=== PATIENT | female | born 1985 | race Caucasian/White ===

== ENCOUNTER 2024-11-05 13:06 | Outpatient (AMB) | payer OTHER, SELFPAY ==
--- NOTE | 2024-11-05 13:11 | MHC.PC.OV ---
Vital Signs 11/05/24 13:12 Height 5 ft 3.5 in Weight 167 lb 4 oz BMI 29.2 BP 120/72 Blood Pressure Location Lt brachial Position Sitting Pulse 104 H Pulse Source Pulse Oximeter Temp 96.9 F Temp Source Skin Pulse Oximetry (%) 99 Oxygen Delivery Method Room Air Intake Visit Reasons: establish care Intake Note: Patient is a new patient here to establish care for Migraine, Sinus issues. Transferring care from [facility] ([place]). Medical records have been requested and have not received. Graphic Arts Instructor Required: No Display Associate: Not Required per policy Accompanied by: Self / Same As Patient Allergies No Known Allergies Allergy (Verified 11/05/24 13:35) Medication List - Last Reconciled 11/05/24 by Denisse Thorne PA-C amitriptyline 100 mg PO BEDTIME fremanezumab-vfrm (Ajovy) 225 mg subcut Q4W sumatriptan succinate mg PO Tobacco use date assessed: 11/05/24 Dental Screening Dental Screen Date: 11/05/24 Did you have a dental visit in the last 12 months?: Yes Did you have a dental problem in the last 6 months where you did not have access to dental care?: No Was dental information given to patient?: Patient has dentist HPI establish care HPI Details 38-year-old female coming to the office for the 1st time. Patient previously being seen by [place]. She had a specialist at [facility] for Neurology for treatment of migraines. Her last PCP was addressing some sinus issues that she has been having for the last 15 years. She was referred to an jewel bearing facer however never made an appointment due to insurance issues. She uses decongestants and nasal sprays occasionally without good relief. She also mentions being seen in the urgent care last month and being treated for impetigo and acute sinusitis with topical mupirocin and oral antibiotic. Sinus symptoms have improved however rash under the nose has been painful and persistent. [facility] Medical History Pseudotumor cerebri History of lumbar puncture Surgical History No pertinent past surgical history Family History Father Substance use disorder Social History Housing: House Alcohol intake: current Alcohol intake frequency: holidays/special occasions only Patient Tobacco Use Status: Never used Tobacco e-Cigarette/Vaping Use: Never Used Second Hand Smoke Exposure: No service: No Current occupational status: unemployed Cognitive needs: No Hearing needs: No Vision needs: Yes (Contacts) Female Reproductive History Menstrual control method: none Total pregnancies: 0 History of abnormal pap smear: No Questionnaire PHQ-9 Over the last 2 weeks, how often have you been bothered by any of the following problems? 1. Little interest or pleasure in doing things: several days 2. Feeling down, depressed, or hopeless: not at all 3. Trouble falling or staying asleep, or sleeping too much: several days 4. Feeling tired or having little energy: nearly every day 5. Poor appetite or overeating: not at all 6. Feeling bad about yourself - or that you are a failure or have let yourself or your family down: several days 7. Trouble concentrating on things, such as reading the newspaper or watching television: not at all 8. Moving or speaking so slowly that other people could have noticed. Or the opposite - being so fidgety or restless that you have been moving around a lot more than usual: not at all 9. Thoughts that you would be better off or of hurting yourself in some way: not at all Total score: 6 Depression Screening Interpretation: Positive Depression Screening Follow-up: Existing condition and Declines treatment Depression Screening Done: Yes Source: Developed by Drs. Catracho Singleton, Aurelia Uriostegui, Dominick Hernandez and colleagues, with an educational gely from [employer]. Thrive Questionnaire Date Thrive assessed: 11/03/24 I am a: Patient What is your living situation today?: I have a steady place to live Within the past 12 months, did the food you bought not last and you didn't have the money to get more?: Never true Within the past 12 months, did you worry whether your food would run out before you got money to buy more?: Never true Do you have trouble paying for medicines?: I choose not to answer this question Do you have trouble getting transportation to medical appointments?: No Do you have trouble paying your heating and electricity bill?: No Do you have trouble taking care of your child, family member or friend?: No Do you have trouble with day-to-day activities such as bathing, preparing meals, shopping, managing finances, etc.?: No Are you currently unemployed and looking for a job?: Yes Are you interested in more education?: I choose not to answer this question Please select the resources that you would like help with: None Currently or been in a relationship where the following occur: No concerns reported THRIVE Score: 0 AUDIT C Alcohol Use Questionnaire (AUDIT-C) 1. How often do you have a drink containing alcohol?: 2-4 times a month 2. How many drinks containing alcohol do you have on a typical day when you are drinking?: 1 or 2 3. How often do you have six or more drinks on one occasion?: Less than monthly Total Score: 3 ALEXX-7 AMB Questionnaire ALEXX-7 Date ALEXX - 7 assessed: 11/05/24 Feeling nervous, anxious, or on edge: 1 = Several days Not being able to stop or control worryin = Not at all Worrying too much about different things: 0 = Not at all Trouble relaxin = Several days Being so restless that it is hard to sit still: 0 = Not at all Becoming easily annoyed or irritable: 0 = Not at all Feeling afraid as if something awful might happen: 0 = Not at all Total ALEXX-7 score (0-4 normal; 5-9 mild; 10-14 moderate; 15-21 severe): 2 Source: Developed by Drs. Catracho Singleton, Aurelia Uriostegui, Dominick Hernandez and colleagues, with an educational gely from [employer]. ALEXX-7 Assessment Billing ALEXX-7 Assessment Tool: ALEXX-7 Assessment 02885 Review of Systems Const Denies body aches, Denies chills, Denies fever(s) and Denies poor appetite Eyes Reports no additional complaints ENT Reports nasal congestion, Reports nasal discharge and Reports sinus pain Card Denies chest pain and Denies dyspnea Resp Denies cough and Denies dyspnea GI Denies abdominal pain, Denies constipation, Denies diarrhea, Denies nausea and Denies vomiting Reports no additional complaints Musc Reports no additional complaints and Denies abnormal gait Skin/Breast Reports system reviewed and no additional complaints, except as documented Neuro Denies abnormal gait Psych Reports no additional complaints Physical exam (Primary Care) Vital Signs: Last Vital Signs Temp 96.9 F 11/05/24 13:12 Pulse 104 H 11/05/24 13:12 BP 120/72 11/05/24 13:12 Pulse Ox 99 11/05/24 13:12 Oxygen Delivery Method Room Air 11/05/24 13:12 BMI result Body Mass Index 29.2 Tobacco/Smoking Status: Tobacco use Status Tobacco use date assessed 11/05/24 11/05/24 13:20 Patient Tobacco Use Status Never used Tobacco 11/05/24 13:21 e-Cigarette/Vaping Use Never Used 11/05/24 13:21 PHQ-9: PHQ-9 Score PHQ-9: Total score 6 11/05/24 13:20 Depression Screening Interpretation: Positive Depression Screening Follow-up: Existing condition and Declines treatment Thrive Assessment: Date of Thrive Assessment Date Thrive assessed 11/03/24 11/05/24 13:20 Currently or been in a relationship where the following occur: No concerns reported Const General: cooperative, healthy appearing, comfortable and no acute distress Orientation/consciousness: patient oriented x3 HENMT Other: Bilateral nares inflamed with dry flaking skin and honey-colored crust. Crusting also extends onto upper lip on the left side with erythematous dry skin with honey-colored crust Head: Yes normocephalic Ears: hearing grossly normal bilaterally General nose exam: Normal external nose present Eyes General: appearance normal, both eyes and all related structures Conjunctivae: conjunctivae normal Neck Neck: Yes full ROM and Yes no lymphadenopathy Resp Effort & Inspection: normal respiratory effort Auscultation: clear to auscultation bilaterally, no crackles, no rales, no rhonchi and no wheezes Cardio Rate: regular rate Rhythm: regular rhythm Skin General skin exam: no rashes or lesions noted Neuro General: patient oriented x3 Gait exam (Neuro): Normal gait present Extrem General: Yes normal to inspection, Yes full ROM and No edema Psych Affect: normal affect Attitude: cooperative Insight: Good insight present (Psych) Judgement: Good judgement present (Psych) Coding Level of Care Code New Pt Level 4 (23444) Diagnoses Migraines G43.909 Allergic rhinitis J30.9 Recurrent sinusitis J32.9 Impetigo L01.00 Depression F32.A Additional Codes ALEXX-7 Assessment Billing - ALEXX-7 Assessment Tool: ALEXX-7 Assessment 44844 ([id number]) Assessment & Plan Assessment & Plan (1) Migraines: Code(s): G43.909 - Migraine, unspecified, not intractable, without status migrainosus Category: Medical Plan: Patient having history of migraines being seen by [facility] Neurology however has lost her neurologist because they left the practice. On sumatriptan as needed, Ajovy monthly and amitriptyline daily. Referral placed to neurologist today. (2) Allergic rhinitis: Code(s): J30.9 - Allergic rhinitis, unspecified Category: Medical Plan: Patient having allergic rhinitis referral placed to proofer prepress and ear has not throat specialists. Also recommended using azelastine nasal spray as well as saline nasal spray for symptom management. Also recommended starting Nicole daily for allergy symptoms. (3) Recurrent sinusitis: Code(s): J32.9 - Chronic sinusitis, unspecified Category: Medical Plan: Patient having history of recurrent sinusitis was initially going to be evaluated by ear nose and throat however did not have appointment. Referral placed to ENT today. Referral also placed to proofer prepress for further evaluation. (4) Impetigo: Code(s): L01.00 - Impetigo, unspecified Category: Medical Plan: Patient having symptoms concerning of a MRSA infection under the nares and on the upper lip. Was being treated with mupirocin ointment initially had improvement and has been using mupirocin for the last month without clearing. We will trial doxycycline b.i.d. for 7 days for treatment of impetigo. Advised patient to reach out if symptoms do not improve. (5) Depression: Code(s): F32.A - Depression, unspecified Category: Medical Plan: Patient having history of depression was previously being seen by counselor for 10 years and did find this beneficial. Declines any symptoms at this time and is declining counseling or medical management. Plan This note was constructed using voice recognition software. While every effort has been made to ensure accuracy and industrial health engineer, still areas may have been included sometimes these areas may affect the content or meeting of the given symptoms. Total time spent caring for the patient today was 30 minutes. This includes time spent before the visit reviewing the chart, time spent during the visit, and time spent after the visit and documentation. Orders: Orders Vitamin B12 and Folate Today Z00.00 - Encounter for general adult medical examination without abnormal findings Complete Blood Count Auto Diff Today Z00.00 - Encounter for general adult medical examination without abnormal findings Comprehensive Met. Panel Today Z00.00 - Encounter for general adult medical examination without abnormal findings TSH reflex Free T4 Today Z00.00 - Encounter for general adult medical examination without abnormal findings Vitamin D 25-OH Total Today Z00.00 - Encounter for general adult medical examination without abnormal findings Lipid Panel Today E78.00 - Pure hypercholesterolemia, unspecified Referrals Neurology Referral G43.909 - Migraine, unspecified, not intractable, without status migrainosus ROAD PATCHER Referral Z12.4 - Encounter for screening for malignant neoplasm of cervix Allergy & Immunology Referral J30.9 - Allergic rhinitis, unspecified Ear/Nose/Throat Referral J30.9 - Allergic rhinitis, unspecified, J32.9 - Chronic sinusitis, unspecified Medications: New azelastine administer into each nostril 1 spray intranasal BID 30 mL 0RF doxycycline hyclate 100 mg PO BID 14 tabs 0RF fexofenadine 180 mg PO DAILY 90 tabs 2RF
[2024-11-05 13:12] VITALS: BP 120/72; PULSE 104; TEMP 36.1; O2SAT 99; BMI 29.2
--- OUTSIDE RECORDS SUMMARY | 2024-11-05 15:40 | XMS_ITS | Continuity of Care Document ---
Author Organization [facility] Pruett [facility] Address [address] [place] [id number] Care Team Providers Care [employer] Learning Support Teacher Name Role Phone IRINA FORTUNE Primary Care Provider [phone] Assessment No assessment recorded. Plan of Treatment Reminders Order Date Submit Date Provider Last Modified By Organization Details Last Modified Time Details Appointments None recorded. Lab None recorded. Referral None recorded. Procedures None recorded. Surgeries None recorded. Imaging None recorded. Medication Orders amoxicillin 875 mg-potassiu m clavulanate 125 mg tablet [address] [id number], [address] [place], [address], 14:44:54 mupirocin 2 % topical ointment [address] [id number], [address] [place], [address], 14:44:53 Patient TargetsNo targets recorded. Patient Instructions Encounter Date Encounter Id Patient Instructions Last Modified By Organization Details Last Modified Time 09/30/2024 [id number] Acute Sinusitis: Care Instructions [email or web address] Not available 09/30/2024 14:44:51 Reason for Referral None Reported. Problems Name Problem SNOMED Code Status Onset Date Resolution Date Notes Provider Name and Address Organization Details Recorded Time Migraine 70858435 Active 2023 ALEXANDRE Archibald [facility] 14:33:54 Attention deficit hyperactivity disorder 794311058 Active 2023 ALEXANDRE Archibald [facility] 12/10/202 4 14:34:04 Problem Notes None recorded. Medical Equipment None Reported. Allergies No known drug allergies Medications Name Sig Start Date Stop Date Status Note LastModified by Organization Details LastModified Time amoxicillin 500 mg capsule TAKE 4 CAPSULES BY MOUTH 1 HOUR BEFORE DENTAL PROCEDURE 09/30 completed Not Available Not Available Not Available ibuprofen 800 mg tablet TAKE 1 TABLET BY MOUTH EVERY 8 HOURS NEEDED FOR PAIN 09/30 completed Not Available Not Available Not Available sumatriptan 100 mg tablet PLEASE SEE ATTACHED FOR DETAILED DIRECTION S active Not Available Not Available No t Available hydrocodone 5 mg-acetamin ophen 325 mg tablet TAKE ONE TAB EVERY 4- 6 HOURS NEEDED PAIN,NOT TO COMBINE WITH OTHER STIMULANT S/DEPRESS ANTS MEDS 09/30 completed Not Available Not Available Not Available dextroamphe tamine-amph etamine 10 mg tablet 1 tablet by mouth twice a day active Not Available Not Available No t Available mupirocin 2 % topical ointment APPLY A SMALL AMOUNT TO THE AFFECTED AREA BY TOPICAL ROUTE 3 TIMES PER DAY 2023 active Not Available Not Available Not Avai lable methylpredn isolone 4 mg tablets in a dose pack TAKE 6 TABLETS ON DAY 1 DIRECTED ON PACKAGE AND DECREASE BY 1 TAB EACH DAY FOR A TOTAL OF 6 DAYS 09/30 completed Not Available Not Available Not Available topiramate 100 mg tablet TAKE 1 TABLET BY MOUTH TWICE A DAY 09/30 completed Not Available Not Available Not Available amitriptyli ne 100 mg tablet TAKE 1 TABLET BY MOUTH EVERYDAY AT BEDTIME active Not Available Not Available No t Available amoxicillin 875 mg-potassiu m clavulanate 125 mg tablet Take 1 tablet every 12 hours by oral route for 10 days. 2023 active Not Available Not Available Not Avai lable Ajovy 225 mg/1.5 mL subcutaneou s auto-inject or active Not Available Not Available Not Available Vitals Date Recorded Body height Body mass index (BMI) Body weight Body temperature Respiratory rate Heart rate Oxygen saturation Oxygen saturation in Arterial blood by Pulse oximetry Systolic blood pressure Diastolic blood pressure Provider Name and Address Organization Details Last Updated DateTime 4 162.56 cm 29.2 kg/m2 30532.1 4 g 98.1 [degF] 12 /min 102 /min 97 % 97 % 134 mm[Hg] 85 mm[Hg] Rafael SCHROEDER - [facility] 14:41:23 Social History Question Answer Notes LastModified by Organizat ion Details LastModified Time Tobacco Smoking Status Never Smoker ALEXANDRE Archibald [facility] 09/30/2024 14:35:51 What Is Your Level Of Alcohol Consumption? Occasional Information not available 09/30/2024 How Many Times Per Week Do You Consume Alcohol? Less Than 1 Time Per Week Information not available 09/30/2024 How Many Years Have You Consumed Alcohol? 15 Information not available 09/30/2024 Are You Currently Employed? No Information not available 09/30/2024 How Many Alcoholic Drinks Do You Consume Per Day On Average? 0 Information not available 09/30/2024 Which Illicit Or Recreational Drugs Have You Used? Edibles Information not available 09/30/2024 How Many Years Have You Used Illicit Or Recreational Drugs? 1 Information not available 09/30/2024 Have You Had A Flu Shot This Season? No Information not available 09/30/2024 If No, Would You Like A Flu Shot Today? No Information not available 09/30/2024 What Is Your Water Source? Well Information not available 09/30/2024 What Is Your Heat Source? Gas Information not available 09/30/2024 What Was The Date Of Your Most Recent Tobacco Screening? 09/30/2024 Information not available 09/30/2024 What Is Your Relationship Status? Domestic Partner Fiance Information not available 09/30/2024 Are You Passively Exposed To Smoke? No Information not available 09/30/2024 Do You Use Any Illicit Or Recreational Drugs? Yes Information not available 09/30/2024 Have You Recently Traveled Abroad? No Information not available 09/30/2024 Do You Or Have You Ever Used Any Other Forms Of Tobacco Or Nicotine? No Information not available 09/30/2024 Sex: Unknown Functional Status None recorded. Mental Status None recorded. Family History Relationship Description Onset Age of this Age Resolved Age Notes LastModified by Organization Details LastModified Time Sister Asthma Not available 14:34:29 Sister Neoplasm of brain Not available 2023 14:34:38 Mother Hypertensive disorder Not available 2023 14:34:47 Father Hepatic failure Not available 2023 14:34:56 Medical History No medical history recorded. Gynecological History Statement/Question Response Date of LMP 09/19/2024 Is there any chance of ? No LMP Definite Obstetrics History GPAL:G 0 P 0 0 0 0 Past Encounters Encounter ID Performer Location Encounter Start Date Encounter Closed Date Diagnosis/Indication Diagnosis SNOMED-CT Code Diagnosis ICD10 Code Diagnosis Note [id number] ALEXANDRE Mooney [address] [place] [address] 09/30/2024 14:27:09 09/30/2024 14:50:14 Acute sinusitis 91187367 J01.90 Based on your presentati on and exam, you are being diagnosed with Sinusitis. Rhinosinus itis is most often viral and will resolve on its own in 7-10 days. Symptoms that last longer than 2 weeks an antibiotic could be considered . Based on your presentati on, an antibiotic was written. The following are my recommenda tions to help your symptoms and to allow your condition to improve: 1. Drink plenty of fluids while you are ill- stay hydrated 2. Rest - don't overexert yourself - this includes sports and any gym routines. 3. I suggest taking an antihistam ine - like Claritin, Zyrtec, or Benedryl 4. If you take OTC cold medication I would recommend Laureen-Selze r Cold/Cough . 5. Mucinex with a lot of water is ok - if you are having trouble clearing your nasal passages of mucous. However, if you start to cough then discontinu e - this can increase coughing due to a watery post nasal drip. 6. Steroid Nasal [place] like Flonase or Nasonex is recommende d. Since an antibiotic was prescribed you need to complete the full course - this is important so you don't develop any antibiotic resistance to future infections . I advise taking a Probiotic like Florastor since you are on an antibiotic - this will help you re-coloniz e your body with the good bacteria. Typically, it will take 6 months for you to restore your normal body ruiz after an antibiotic . Don't hesitate to be seen again if you develop: 1. Fever > 100.5 2. Worsening Headache 3. Stiff Neck 4. Worsening Cough or Shortness of breath 5. Visual Changes. The antibiotic should start to work in 4-5 days. You may not notice immediate response. Thank you for using [facility] today, please feel free to contact our office if you have any questions or concerns. Health Concerns Section Related Observation LastModified by Organization Detai ls LastModified Time None Recorded Concern Status LastModified by Organization Details LastModified Time None Recorded Payers Encounter Date Sequence Insurance Name Policy Number Policy Lee Covered Member ID Lee Member ID Guarantor Name 09/30/2024 1 [facility] ([facility]) JENI Kristina Hsu [id number] Kristina Hsu Notes Date Note Type Note Provider Name and Address Organization Details Recorded Time 09/30/2024 text/html 38 y/o female with a month of sinus congestion, pain, headache, worsening. Using OTC meds with no relief, this feels like her normal sinus infection symptoms. she also has sores on both nostrils ALEXANDRE Mooney [address] [place], [address], [place] - [facility] 09/30/2024 14:46:12 OBGyn Episode No OBEpisode recorded.
== END 2024-11-05 14:03 | disposition home or self-care (01) ==
PROVIDERS: PCP Internal Medicine
DX: G43.909 Migraine, unspecified, not intractable, without status migrainosus (principal); J30.9 Allergic rhinitis, unspecified; J32.9 Chronic sinusitis, unspecified; L01.00 Impetigo, unspecified; F32.A Depression, unspecified

== ENCOUNTER → 2024-11-05 13:06 | Outpatient (BNVA) | payer OTHER, SELFPAY | PROVIDERS: PCP Internal Medicine | DX: Z00.00 Encounter for general adult medical examination without abnormal findings (principal); G43.909 Migraine, unspecified, not intractable, without status migrainosus; J30.9 Allergic rhinitis, unspecified; J32.9 Chronic sinusitis, unspecified; L01.00 Impetigo, unspecified; F32.A Depression, unspecified; E78.00 Pure hypercholesterolemia, unspecified | CPT/HCPCS: 96127; 99202 ==

== ENCOUNTER 2025-01-31 11:42 | Outpatient (REF) | payer OTHER, SELFPAY ==
--- OUTSIDE RECORDS SUMMARY | 2025-01-31 11:45 | XMS_ITS | Data Portability ---
Author Organization ALEXANDRE Pruett michel [address] Address [address] [place] [address] Care Team Providers Care Mc Kay Stitcher Name Role Phone IRINA FORTUNE Primary Care Provider Assessment No assessment recorded. Plan of Treatment Reminders Order Date Submit Date Provider Last Modified By Organization Details Last Modified Time Details Appointments None recorded. Lab None recorded. Referral None recorded. Procedures None recorded. Surgeries None recorded. Imaging None recorded. Medication Orders amoxicillin 875 mg-potassiu m clavulanate 125 mg tablet 2023 024 [facility]armacy #[id number], [address] [place], [address], 14:44:54 mupirocin 2 % topical ointment 2023 024 [facility]arm[facility] #[id number], [address] [place], [address], 14:44:53 Patient TargetsNo targets recorded. Patient Instructions Encounter Date Encounter Id Patient Instructions Last Modified By Organization Details Last Modified Time 09/30/2024 [id number] Acute Sinusitis: Care Instructions [email or web address] Not available 09/30/2024 14:44:51 Reason for Referral None Reported. Problems Name Problem SNOMED Code Status Onset Date Resolution Date Notes Provider Name and Address Organization Details Recorded Time Migraine 07116331 Active 2023 ALEXANDRE Archibald [facility] 14:33:54 Attention deficit hyperactivity disorder 075856076 Active 2023 ALEXANDRE Archibald [facility] 14:34:04 Problem Notes None recorded. Medical Equipment [...] (BMI) Body weight Body temperature Respiratory rate Pain severity - 0-10 verbal numeric rating [Score] - Reported Heart rate Oxygen saturation Oxygen saturation in Arterial blood by Pulse oximetry Systolic blood pressure Diastolic blood pressure Provider Name and Address Organization Details Last Updated DateTime 4 162.56 cm 29.2 kg/m2 79918.1 4 g 98.1 [degF] 12 /min 8 102 /min 97 % 97 % 134 mm[Hg] 85 mm[Hg] Rafael Martineznas PA - [facility] 14:41:23 Social History Question Answer Notes LastModified by Organizat ion Details LastModified Time Tobacco Smoking Status Never Smoker Rafael Martineznas ash PA - [facility] 09/30/2024 14:35:51 What Is Your [...] SNOMED-CT Code Diagnosis ICD10 Code Diagnosis Note [id number] ALEXANDRE Mooney [address] [place] [address] 09/30/2024 14:27:09 09/30/2024 14:50:14 Acute sinusitis 61621632 J01.90 Based on your presentati on and [...] watery post nasal drip. 6. Steroid Nasal [place] like Flonase or Nasonex is recommende d. [...] by Organization Details LastModified Time None Recorded Advance Directives Directive None Recorded Payers Encounter Date Sequence Insurance Name Policy Number Policy Lee Covered Member ID Lee Member ID Guarantor Name 09/30/2024 1 [facility] [employer] Kristina Hsu [id number] Kristina Hsu Notes Date Note Type Note Provider Name and Address Organization Details Recorded Time 09/30/2024 text/html 38 y/o female with a month of sinus congestion, pain, headache, worsening. Using OTC meds with no relief, this feels like her normal sinus infection symptoms. she also has sores on both nostrils ALEXANDRE Mooney [address] [place], [address], [place] - [facility] 09/30/2024 14:46:12 OBGyn Episode No OBEpisode recorded.
[2025-01-31 13:32] LABS: MANUAL DIFF FLAG NO
[2025-01-31 13:35] LABS: Basophils Absolute Auto 0.1 X10*3/uL (0.0-0.2); Basophils Percent Auto 1.8 % (0-2); Eosinophils Absolute Auto 0.5 X10*3/uL (0.0-0.4); Eosinophils Percent Auto 7.7 % (0-4); Hematocrit 32.5 % (37.0-47.0); Hemoglobin 9.4 g/dl (12.0-16.0); Imm Gran Abs Auto 0.01 X10*3/uL (0.00-0.03); Imm Gran Pct Auto 0.1 % (0.0-0.4); Lymphocytes Absolute Auto 1.7 X10*3/uL (1.2-4.9); Lymphocytes Percent Auto 25.4 % (20-40); Mean Corpuscular HGB Conc 28.9 g/dl (31.0-35.0); Mean Corpuscular Hemoglobin 21.5 pg (27.0-33.0); Mean Corpuscular Volume 74.4 fL (80.0-98.0); Mean Platelet Volume 9.7 fL (9.4-12.3); Monocytes Absolute Auto 0.5 X10*3/uL (0.1-1.2); Monocytes Percent Auto 6.9 % (2-11); Neutrophils Absolute Auto 3.9 x10*3/uL (2.0-8.3); Neutrophils Percent Auto 58.1 % (45-73); Platelet Count 320 X10*3/uL (160-400); Red Blood Count 4.37 X10*6/uL (4.20-5.50); Red Cell Distribution Width 17.5 % (11.0-16.0); White Blood Count 6.8 X10*3/uL (4.8-10.8)
[2025-01-31 13:53] LABS: Alanine Aminotransferase 10 U/L (0-31); Albumin Level 4.2 g/dL (3.5-5.0); Alkaline Phosphatase 64 U/L (39-117); Anion Gap 12 (12-20); Aspartate Amino Transferase 18 U/L (5-31); Bilirubin Total 0.5 mg/dL (0.0-1.0); Blood Urea Nitrogen 9 mg/dL (9-16); Calcium 9.1 mg/dL (8.4-10.2); Carbon Dioxide 28 mmol/L (22-29); Chloride 105 mmol/L (96-108); Cholesterol 220 mg/dL (<200); Estimated Glomerular Filt Rate > 60; Glucose Random 101 mg/dL (60-115); HDL Cholesterol 75 mg/dL (>40); LDL Cholesterol Calculated 120 mg/dL (<100); Potassium 3.8 mmol/L (3.3-5.1); Sodium 141 mmol/L (135-145); Total Protein 7.3 g/dL (6.5-8.0); Triglycerides 125 mg/dL (<150)
[2025-01-31 14:10] LABS: TSH reflex Free T4 0.65 uIU/mL (0.32-4.0); Vitamin D 25-OH Total 6.4 ng/mL (>30)
[2025-01-31 14:22] LABS: Folate 5.6 ng/mL (> or = 4.0); Vitamin B12 437 pg/mL (200-900)
== END 2025-01-31 11:43 | disposition home or self-care (01) ==
LOC: HO.HMGCLDS 11:42
DX: Z00.00 Encounter for general adult medical examination without abnormal findings (principal); E78.00 Pure hypercholesterolemia, unspecified
CPT/HCPCS: 36415; 80053; 80061; 82306; 82607; 82746; 84443; 85025

== ENCOUNTER 2025-02-03 14:48 | Outpatient (AMB) | payer OTHER, SELFPAY ==
--- NOTE | 2025-02-03 15:00 | A.OFFPC_ITS ---
Vital Signs 3 02/03/25 15:01 Height 5 ft 3.5 in Weight 177 lb BMI 30.9 BP 120/68 Blood Pressure Location Lt brachial Position Sitting Pulse 65 Pulse Source Pulse Oximeter Temp 97.5 F Temp Source Temporal Artery Scan Pulse Oximetry (%) 100 Oxygen Delivery Method Room Air Intake Visit Reasons: pe Intake Note: Patient is here today for a physical. Appraiser Personal Property Required: No Certified Nuclear Medicine Technologist: Not Required per policy Accompanied by: Self / Same As Patient Allergies No Known Allergies Allergy (Verified 02/03/25 15:12) Medication List - Last Reconciled 02/03/25 by Denisse Thorne PA-C amitriptyline 100 mg PO BEDTIME azelastine 1 spray intranasal BID cholecalciferol (vitamin D3) 25 mcg PO DAILY fexofenadine 180 mg PO DAILY fremanezumab-vfrm (Ajovy) 225 mg subcut Q4W sumatriptan succinate mg PO Tobacco use date assessed: 02/03/25 Dental Screening Dental Screen Date: 11/05/24 HPI pe 2 HPI0 Details 39-year-old female with past medical his tory of depression, migraines and impetigo last seen 10/2024 coming in for annual exam. Presenting for her annual wellness exam and evaluation of chronic migraine headaches which occur several times weekly. The patient reports persistent skin rash under the nose, exacerbated by environmental factors, noting some relief with a prior ointment, which she discontinued a month ago. Initially had improved with Doxycycline but is beginning to return. Lab studies have identified iron deficiency anemia, primarily due to menorrhagia, impacting her overall well-being. Although fatigue is not explicitly reported, the patient acknowledges heavy menstruation significantly complicates daily activities. An ophthalmic issue, a sty, reportedly subsided following warm compress treatments and the use of specific hygiene techniques. pap smear: seeing bakery chef later this week [facility] Medical History Pseudotumor cerebri History of lumbar puncture Surgical History No pertinent past surgical history Family History Father Substance use disorder Social History Housing: House Alcohol intake: current Alcohol intake frequency: holidays/special occasions only Patient Tobacco Use Status: Never used Tobacco e-Cigarette/Vaping Use: Never Used Second Hand Smoke Exposure: No service: No Current occupational status: unemployed Cognitive needs: No Hearing needs: No Vision needs: Yes (Contacts) Female Reproductive History Menstrual control method: none Questionnaire Thrive Questionnaire Date Thrive assessed: 11/03/24 I am a: Patient What is your living situation today?: I have a steady place to live Within the past 12 months, did the food you bought not last and you didn't have the money to get more?: Never true Within the past 12 months, did you worry whether your food would run out before you got money to buy more?: Never true Do you have trouble paying for medicines?: I choose not to answer this question Do you have trouble getting transportation to medical appointments?: No Do you have trouble paying your heating and electricity bill?: No Do you have trouble taking care of your child, family member or friend?: No Do you have trouble with day-to-day activities such as bathing, preparing meals, shopping, managing finances, etc.?: No Are you currently unemployed and looking for a job?: Yes Are you interested in more education?: I choose not to answer this question Please select the resources that you would like help with: None Currently or been in a relationship where the following occur: No concerns reported THRIVE Score: 0 ALEXX-7 AMB Questionnaire ALEXX-7 Date ALEXX - 7 assessed: 11/05/24 Source: Developed by Drs. Catracho Singleton, Aurelia Uriostegui, Dominick Hernandez and colleagues, with an educational gely from [employer]. Review of Systems Const Denies body aches, Denies fatigue, Denies fever(s), Denies frequent falls, Denies headache(s) and Denies weakness Eyes Reports no additional complaints and Denies change in vision ENT Denies dysphagia, Denies dizziness, Denies facial pain, Denies headache(s), Denies nasal congestion and Denies odynophagia Card Denies chest pain, Denies syncope, Denies irregular heart rhythm, Denies leg edema, Denies lightheadedness and Denies dyspnea Resp Denies cough and Denies dyspnea GI Denies abdominal pain, Denies constipation, Denies dysphagia, Denies dyspepsia, Denies diarrhea, Denies nausea, Denies odynophagia and Denies vomiting Denies urinary frequency, Denies dysuria, Denies urinary hesitancy and Denies urinary urgency Musc Denies back pain and Denies myalgias Skin/Breast Reports system reviewed and no additional complaints, except as documented Neuro Denies dizziness, Denies syncope, Denies frequent falls, Denies headache(s) and Denies weakness Psych Reports no additional complaints Endo Denies fatigue Physical exam (Primary Care) Vital Signs: Last Vital Signs Temp 97.5 F 02/03/25 15:01 Pulse 65 02/03/25 15:01 BP 120/68 02/03/25 15:01 Pulse Ox 100 02/03/25 15:01 Oxygen Delivery Method Room Air 02/03/25 15:01 BMI result Body Mass Index 30.9 Tobacco/Smoking Status: Tobacco use Status Tobacco use date assessed 02/03/25 02/03/25 15:06 Patient Tobacco Use Status Never used Tobacco 02/03/25 15:06 e-Cigarette/Vaping Use Never Used 02/03/25 15:06 Thrive Assessment: Date of Thrive Assessment Date Thrive assessed 11/03/24 02/03/25 15:06 Currently or been in a relationship where the following occur: No concerns reported Const General: cooperative, healthy appearing, comfortable and no acute distress Orientation/consciousness: patient oriented x3 HENMT Head: Yes normocephalic Ears: hearing grossly normal bilaterally, external ears normal, TM's normal bilaterally and EAC's normal General nose exam: Normal external nose present Face and sinus: Yes normal facial exam and Yes sinuses nontender Mouth: Normal oral and palatal mucosa present and tongue normal Throat: Yes posterior oropharynx normal Eyes General: appearance normal, both eyes and all related structures Conjunctivae: conjunctivae normal Pupils: Equal, round and reactive pupils present EOM: EOMs intact bilaterally and No Nystagmus present Eyes/upper lids images: 2 1. stye Neck Neck: Yes normal visual inspection, Yes full ROM and Yes no lymphadenopathy Chest Chest palpation & inspection: normal inspection of the chest Resp Effort & Inspection: normal respiratory effort Auscultation: clear to auscultation bilaterally, no crackles, no rales, no rhonchi, no wheezes and breath sounds present Cardio Rate: regular rate Rhythm: regular rhythm Peripheral pulses: radial pulses present and dorsalis pedis present GI Inspection: Yes normal to inspection and No Abdominal wall edema Palpation (GI): Soft to palpation, not firm and nontender Auscultation: normal bowel sounds Rectal Exam - Female: deferred General: Yes no CVA tenderness Back/Spine/Pelvis Back: no CVA tenderness Skin Other: dry, flaking skin under the left nare Neuro General: patient oriented x3 Cranial nerves: Yes Equal, round and reactive pupils present, Yes Midline tongue present, Yes Ability to bilaterally elevate shoulders present and No Nystagmus present Gait exam (Neuro): Normal gait present Extrem General: Yes normal to inspection, Yes full ROM, No no pedal edema and No edema Psych Speech and movement: Normal speech and movement present Affect: normal affect Insight: Good insight present (Psych) Judgement: Good judgement present (Psych) Immunizations Boostrix Tdap 2.5 Lf unit-8 mcg-5 Lf/0.5 mL intramuscular syringe Performing Provider: Denisse Thorne PA-C [facility] Administered by: Sari Abdi LPN on 02/03/25 15:43 2 Dose Route Admin Location Dispensed Lot Number Expiration Date [facility] Secretarial Teacher 0.5 mL IM Left Deltoid 0.5 mL [id number] 06/17/27 [id number] [employer] 2 VIS Given Date VIS Provided VIS Publication Date 02/03/25 Single Vaccine 21 Eligibility Eligibility Date Funding Source Not [facility] Eligible 02/03/25 Private Coding Level of Care Code Est Pt Prev Care 18-39y([id number]) Diagnoses Depression F32.A Impetigo L01.00 Recurrent sinusitis J32.9 Migraines G43.909 Annual physical exam Z00.00 Pseudotumor cerebri G93.2 Allergic rhinitis J30.9 Anemia D64.9 Stye H00.019 Assessment & Plan Assessment & Plan (1) Depression: Code(s): F32.A - Depression, unspecified Category: Medical Plan: Patient having history of depression was previously being seen by counselor for 10 years and did find this beneficial. Declines any symptoms at this time and is declining counseling or medical management. (2) Impetigo: Code(s): L01.00 - Impetigo, unspecified Category: Medical Plan: Patient was treated for impetigo at last visit with doxycycline twice daily for 7 days which did initially help resolve the rash. Patient mentions her house is dry and may be contributing to the rash returning. Plan to use mupirocin twice daily until rash resolves (3) Recurrent sinusitis: Code(s): J32.9 - Chronic sinusitis, unspecified Category: Medical Plan: Patient having history of recurrent sinusitis was initially going to be evaluated by ear nose and throat however did not have appointment. Referral placed to ENT and higher level teaching assistant at last visit. (4) Migraines: Code(s): G43.909 - Migraine, unspecified, not intractable, without status migrainosus Category: Medical Plan: Patient having history of migraines being seen by [facility] however has lost her neurologist because they left the practice. On sumatriptan as needed, Ajovy monthly and amitriptyline daily. Referral placed to neurologist at last visit. (5) Annual physical exam: Code(s): Z00.00 - Encounter for general adult medical examination without abnormal findings Category: Medical Plan: Patient is up-to-date on all recommended routine screenings and vaccinations for her age. She has gynecology appointment later this week for routine Pap smear and was updated on her tetanus vaccine today. Work is up-to-date and has been reviewed with the patient. Healthy diet and regular exercise is encouraged. (6) Pseudotumor cerebri: Comment: Dr. Gonzalez yearly Code(s): G93.2 - Benign intracranial hypertension Category: Medical Plan: Currently following with Dr. Fletcher yearly (7) Allergic rhinitis: Code(s): J30.9 - Allergic rhinitis, unspecified Category: Medical Plan: Patient having allergic rhinitis referral placed to higher level teaching assistant and ear has not throat specialists at last visit. Also recommended using azelastine nasal spray as well as saline nasal spray for symptom management and Nicole daily. (8) Anemia: Code(s): D64.9 - Anemia, unspecified Category: Medical Plan: Patient having iron deficiency anemia on last labs plan to start on iron supplementation along with vitamin-C and repeat labs in 3 months. (9) Stye: Code(s): H00.019 - Hordeolum externum unspecified eye, unspecified eyelid Category: Medical Plan: Patient having stye of the right eye recommend the use of warm compress along with good lid hygiene. Plan The patient?s immediate management includes reinitiating her skin ointment twice daily to prevent infection due to dry and cracked skin. For iron deficiency anemia, we're starting supplemental iron, facilitating absorption with a vitamin C-rich diet. Her neurologist's decision to maintain the current migraine medication regimen holds, with an upcoming appointment set in May. ENT specialty follow-up continues to experience scheduling delays; ongoing encouragement for continuity in pursuing this care is advised. Reevaluation of labs is scheduled in three months, with specific attention to iron. The patient is also advised on continued fiber supplementation to prevent iron-induced constipation and monitoring her cholesterol for any requisite future interventions. Recommendations for managing recurring sty emphasize warm compresses, hygiene maintenance, and discarding potential ocular irritants like mascara. This note was constructed using voice recognition software. While every effort has been made to ensure accuracy and site lead, still areas may have been included sometimes these areas may affect the content or meeting of the given symptoms. Total time spent caring for the patient today was 30 minutes. This includes time spent before the visit reviewing the chart, time spent during the visit, and time spent after the visit and documentation. Patient was informed and verbally consented to the use of an ambient scribe for clinic note documentation during this visit. Orders: Orders 2 Complete Blood Count Auto Diff 3 Months D64.9 - Anemia, unspecified, Z00.00 - Encounter for general adult medical examination without abnormal findings TDaP Immunization Today D64.9 - Anemia, unspecified, Z23 - Encounter for immunization IRON PROFILE 3 Months D64.9 - Anemia, unspecified Medications: New 2 ferrous sulfate (FeroSul) 325 mg PO DAILY 90 tabs 1RF mupirocin 2% 1 appl topical BID 15 grams 0RF
[2025-02-03 15:01] VITALS: BP 120/68; PULSE 65; TEMP 36.4; O2SAT 100; BMI 30.9
--- OUTSIDE RECORDS SUMMARY | 2025-02-03 18:04 | XMS_ITS ---
[facility] Name [facility] Unknown Encounters Encounter Type Encounter Reason Primary Diagnosis Location Date Ambulatory [facility], [facility] ([facility] 09/30/2024
--- OUTSIDE RECORDS SUMMARY | 2025-02-03 18:04 | XMS_ITS | Data Portability ---
Author Organization ALEXANDRE Pruett michel [address] Address [address] [place] [address] Care Team Providers Care Route Driver Salesperson Name Role Phone IRINA FORTUNE Primary Care Provider [phone] Assessment No assessment recorded. Plan of Treatment Reminders Order Date Submit Date Provider Last Modified By Organization Details Last Modified Time Details Appointments None recorded. Lab None recorded. Referral None recorded. Procedures None recorded. Surgeries None recorded. Imaging None recorded. Medication Orders amoxicillin 875 mg-potassiu m clavulanate 125 mg tablet 2023 024 [facility] #[id number], [address] [place], [address], 14:44:54 mupirocin 2 % topical ointment 2023 024 [id number], [address] [place], [address], 14:44:53 Patient TargetsNo targets recorded. Patient Instructions Encounter Date Encounter Id Patient Instructions Last Modified By Organization Details Last Modified Time 09/30/2024 [id number] Acute Sinusitis: Care Instructions [email or web address] Not available 09/30/2024 14:44:51 Reason for Referral None Reported. Problems Name Problem SNOMED Code Status Onset Date Resolution Date Notes Provider Name and Address Organization Details Recorded Time Migraine 63490502 Active 2023 ALEXANDRE Archibald [facility] 14:33:54 Attention deficit hyperactivity disorder 563111178 Active 2023 ALEXANDRE Archibald [facility] 14:34:04 [...] Updated DateTime 4 162.56 cm 29.2 kg/m2 65720.1 4 g 98.1 [degF] 12 /min 8 [...] SNOMED-CT Code Diagnosis ICD10 Code Diagnosis Note [id number] ALEXANDRE Mooney [address] [place] [address] 09/30/2024 14:27:09 09/30/2024 14:50:14 Acute sinusitis [id number] J01.90 Based on your presentati on and [...] watery post nasal drip. 6. Steroid Nasal [place] like Flonase or Nasonex is recommende d. [...] Lee Member ID Guarantor Name 09/30/2024 1 [facility] [employer] Kristina Hsu [id number] Kristina Hsu Notes Date Note Type Note Provider Name and Address Organization Details Recorded Time 09/30/2024 text/html 38 y/o female with a month of sinus congestion, pain, headache, worsening. Using OTC meds with no relief, this feels like her normal sinus infection symptoms. she also has sores on both nostrils ALEXANDRE Mooney [address] [place], [address], [place] - [facility] 09/30/2024 14:46:12 OBGyn Episode No OBEpisode recorded.
== END 2025-02-03 15:45 | disposition home or self-care (01) ==
LOC: HO.HMCH 14:48
DX: F32.A Depression, unspecified (principal); L01.00 Impetigo, unspecified; J32.9 Chronic sinusitis, unspecified; G43.909 Migraine, unspecified, not intractable, without status migrainosus; Z00.00 Encounter for general adult medical examination without abnormal findings; G93.2 Benign intracranial hypertension; J30.9 Allergic rhinitis, unspecified; D64.9 Anemia, unspecified; H00.019 Hordeolum externum unspecified eye, unspecified eyelid; Z23 Encounter for immunization

== ENCOUNTER → 2025-02-03 14:48 | Outpatient (BNVA) | payer OTHER, SELFPAY | DX: Z00.01 Encounter for general adult medical examination with abnormal findings (principal); F32.A Depression, unspecified; G43.909 Migraine, unspecified, not intractable, without status migrainosus; L01.00 Impetigo, unspecified; J32.9 Chronic sinusitis, unspecified; G93.2 Benign intracranial hypertension; J30.9 Allergic rhinitis, unspecified; D64.9 Anemia, unspecified; H00.019 Hordeolum externum unspecified eye, unspecified eyelid; Z23 Encounter for immunization | CPT/HCPCS: 90471; 90715; 99395 ==

== ENCOUNTER 2025-02-05 12:53 | Outpatient (REF) | payer OTHER, SELFPAY ==
[2025-02-06 13:58] LABS: CT PCR NOT DETECTED (Not Detect.); NG PCR NOT DETECTED (Not Detect.)
[2025-02-06 16:54] LABS: Bacterial Vaginosis PCR NEGATIVE (Negative); Candida Group PCR NOT DETECTED (Not Detect); Candida glab krusei PCR DETECTED (Not Detect); Trichomonas vaginalis PCR DETECTED (Not Detect)
[2025-02-16 11:43] LABS: HPV Genotype 16 Negative (Negative); HPV Genotype 18 Negative (Negative); HPV High Risk Negative (Negative)
== END 2025-02-05 12:54 | disposition home or self-care (01) ==
LOC: HO.LNP 12:53
PROVIDERS: Visit Provider Advanced Practice Midwife
DX: Z01.419 Encounter for gynecological examination (general) (routine) without abnormal findings (principal); N89.8 Other specified noninflammatory disorders of vagina; D64.9 Anemia, unspecified; G43.909 Migraine, unspecified, not intractable, without status migrainosus; N92.0 Excessive and frequent menstruation with regular cycle; J32.9 Chronic sinusitis, unspecified
CPT/HCPCS: 81515; 87491; 87591; 87626; 88175; 99385; 99459

== ENCOUNTER 2025-02-05 12:53 | Outpatient (AMB) | payer OTHER, SELFPAY ==
[2025-02-05 13:01] VITALS: BP 102/62; BMI 31.0
--- NOTE | 2025-02-05 13:01 | MHC.OFFVIS ---
Vital Signs 02/05/25 13:01 Height 5 ft 3.5 in Weight 178 lb BMI 31.0 BP 102/62 Intake Visit Reasons: annual Chief Nurse Anesthetist Required: No Chief Nurse Anesthetist Services: Chief Nurse Anesthetist Present Information Interpreted: clinical only Professor Of Education: Professor Of Education Present Allergies No Known Allergies Allergy (Verified 02/05/25 13:01) Medication List - Last Reconciled 02/05/25 by Kelly Del Real CNM amitriptyline 100 mg PO BEDTIME azelastine 1 spray intranasal BID cholecalciferol (vitamin D3) 25 mcg PO DAILY ferrous sulfate (FeroSul) 325 mg PO DAILY fexofenadine 180 mg PO DAILY fremanezumab-vfrm (Ajovy) 225 mg subcut Q4W mupirocin 2% 1 appl topical BID sumatriptan succinate mg PO Is last menstrual period known: Yes Last menstrual period: 01/15/25 HPI HPI annual: Details: Patient is here With a cold status post a sinus infection staph infection her nose. She says she was on 3 different antibiotics in the last month she may have finish them about 3 weeks ago. She is still using the ointment for her nose and she is not sure if she is getting a new cold she also has a history of severe migraines some with auras for which she is on injections and p.o. meds and breakthrough medication as well. She gets very heavy periods and she just found out she is anemic. And she would like to talk about something to help make her periods less heavy and crampy she was on pills in the past and then a NuvaRing which was great. She also gets premenstrual mood changes which are very challenging and sometimes that is when her migraines happen around her periods as well. She is 39 years old and she is resolving herself to probably not having children. she and her fiance have talked about it and he is older and does not want to have children and she has resolving herself to this. But she thinks that with all of her challenges with the migraines it would be difficult as well. Patient has been using the pull out method for control which she feels is not the best but.... [facility] Medical History Pseudotumor cerebri History of lumbar puncture Surgical History No pertinent past surgical history Family History Father Substance use disorder Social History Housing: House Alcohol intake: current Alcohol intake frequency: holidays/special occasions only Patient Tobacco Use Status: Never used Tobacco e-Cigarette/Vaping Use: Never Used Second Hand Smoke Exposure: No service: No Current occupational status: unemployed Cognitive needs: No Hearing needs: No Vision needs: Yes (Contacts) Female Reproductive History Menstrual Age of Menarche: 12 Duration of menses: 3-5 days Date of last menstrual period: 01/15/25 control method: none Total pregnancies: 0 History of abnormal pap smear: Yes () Physical Exam Vital Signs: Last Vital Signs BP 102/62 02/05/25 13:01 BMI result Body Mass Index 31.0 Const General: healthy appearing, comfortable, no acute distress, well developed and alert Nutritional Appearance: average body habitus Orientation/consciousness: patient oriented x3 Limitations: no limitations HEENT Head: Yes normocephalic Neck Neck: Yes normal visual inspection Chest Chest palpation & inspection: normal inspection of the chest Breast/axilla inspection: normal inspection of the breasts and normal inspection of the axillae Breast/axilla palpation: normal palpation of the breasts and normal palpation of the axillae Resp Effort & Inspection: normal respiratory effort GI Inspection: Yes normal to inspection, No Abdominal wall edema and No distended Palpation (GI): Soft to palpation and nontender Other: External vulva slightly pink whitish discharge that might be consistent with normal ruiz or mild yeast Cervix nulliparous pink smooth healthy appearing friable with Pap testing for STIs done as we are discussing possible Mirena. Cervix long close thick mobile nontender uterus midposition to anteverted mobile nontender nonenlarged. Adnexa nonenlarged. Good tone with Kegel General: Yes bladder normal to palpation External Female Exam: normal external appearance and normal appearance of the urethra Speculum Exam - Vagina: normal appearance of the vagina, normal palpation and normal vaginal discharge Speculum Exam - Cervix: normal appearance of the cervix, normal palpation and nontender Bimanual exam- vagina & uterus: normal bimanual exam, normal palpation, uterine size normal, bladder normal to palpation, consistency normal, normal palpation, uterine mobility normal, uterine shape normal, No Cervical tenderness present, non-tender and no cervical motion tenderness Bimanual Exam- Adnexa, other: normal adnexae, no masses, normal and No adnexal tenderness Neuro General: patient oriented x3 Assessment & Plan Assessment & Plan (1) Recurrent sinusitis: Code(s): J32.9 - Chronic sinusitis, unspecified Category: Medical (2) Anemia: Code(s): D64.9 - Anemia, unspecified Category: Medical (3) Migraines: Comment: Patient states sometimes with aura is on medication Code(s): G43.909 - Migraine, unspecified, not intractable, without status migrainosus Category: Medical (4) Menorrhagia with regular cycle: Code(s): N92.0 - Excessive and frequent menstruation with regular cycle Category: Medical Plan -----Discussed in this visit the following: healthy balanced diet, regular and consistent exercise, getting recommended health screens, doing the best she can for her particular health concerns, kegel exercises, pap smear screening and followup recommendations, mammography screening and SBE, normal changes in cycles in her life stage--- . Discussed her anemia discussed that is possibly very likely related to her heavy periods. She is interested in a method of control and something that would make her periods automotive service cashier discussed that since she is pretty clear she is not going to have any children at this point a Mirena IU S me serve her very well discussed side effects discussed risks discussed that many women find it very helpful with all of the menstrual symptoms she is describing but only she will be able to tell and I recommend that she give it a few months to see how she feels with the. I discussed that the best time to place it is during the 1st few heavy days of her period and since she gets a couple of days of spotting ahead of time that we will be easier to help schedule it as she will have a warning that her period is starting. Discussed also that if I prescribed misoprostol tablets for her to insert in her vagina 6 hours ahead of time and repeat 2 hours ahead of insertion if she has no cramping a lot that this may soften her cervix more and make the insertion process more tolerable she is able to take ibuprofen so she could take that after the fact as well. Reviewed all the other rationale for why we inserted the heaviest days of her period and how it works. She is interested and would like to try it.. Her last menstrual periods started the end of December so it is possible that we might be able to insert the IUDs soon with the next menses if the scheduling works out. I am sending a prescription for the misoprostol and also for Monistat in case she does either show yeast or develops it after antibiotics which she has needed so much of. Medications: New misoprostol [address] one tab 6 hrs prior to iud insertion, if no or minimal cramping, repeat dose 2 hours before planned insertion, on day 2 of menses. 2 tabs 0RF miconazole nitrate 2% (Miconazole-7) For use if you have a yeast infection.. 1 appful vaginal BEDTIME 7 days 45 grams 2RF Coding Level of Care Code New Pt Prev Care 18-39yr(58248 Diagnoses Recurrent sinusitis J32.9 Anemia D64.9 Migraines G43.909 Menorrhagia with regular cycle N92.0
--- OUTSIDE RECORDS SUMMARY | 2025-02-05 15:41 | XMS_ITS | Data Portability ---
Author Organization [facility] Pruett [facility] [address] Address [address] [place] [address] Care Team Providers Care Poll Clerk Name Role Phone IRINA FORTUNE Primary Care Provider Assessment No assessment recorded. Plan of Treatment Reminders Order Date Submit Date Provider Last Modified By Organization Details Last Modified Time Details Appointments None recorded. Lab None recorded. Referral None recorded. Procedures None recorded. Surgeries None recorded. Imaging None recorded. Medication Orders amoxicillin 875 mg-potassiu m clavulanate 125 mg tablet 2023 024 [id number], [address] [place], [address], 14:44:54 mupirocin 2 % topical ointment 2023 024 [id number], [address] [place], [address], 14:44:53 Patient TargetsNo targets recorded. Patient Instructions Encounter Date Encounter Id Patient Instructions Last Modified By Organization Details Last Modified Time 09/30/2024 [id number] Acute Sinusitis: Care Instructions [email or web address] Not available 09/30/2024 14:44:51 Reason for Referral None Reported. Problems Name Problem SNOMED Code Status Onset Date Resolution Date Notes Provider Name and Address Organization Details Recorded Time Migraine 49445003 Active 2023 [facility] Archibald [facility] 14:33:54 Attention deficit hyperactivity disorder 384337216 Active 2023 ALEXANDRE Archibald [facility] 14:34:04 [...] Updated DateTime 4 162.56 cm 29.2 kg/m2 33926.1 4 g 98.1 [degF] 12 /min 8 [...] SNOMED-CT Code Diagnosis ICD10 Code Diagnosis Note [id number] ALEXANDRE Mooney [address] [place] [address] 09/30/2024 14:27:09 09/30/2024 14:50:14 Acute sinusitis [id number] J01.90 Based on your presentati on and [...] watery post nasal drip. 6. Steroid Nasal Meridian like Flonase or Nasonex is recommende d. [...] Lee Member ID Guarantor Name 09/30/2024 1 [facility] [place] Kristina Hsu [id number] Kristina Hsu Notes Date Note Type Note Provider Name and Address Organization Details Recorded Time 09/30/2024 text/html 38 y/o female with a month of sinus congestion, pain, headache, worsening. Using OTC meds with no relief, this feels like her normal sinus infection symptoms. she also has sores on both nostrils ALEXADNRE Mooney [address] [place], [address], [place] [facility] 09/30/2024 14:46:12 OBGyn Episode No OBEpisode recorded.
== END 2025-02-05 13:51 | disposition home or self-care (01) ==
LOC: HO.HWSM 12:53
PROVIDERS: Visit Provider Advanced Practice Midwife
DX: Z01.419 Encounter for gynecological examination (general) (routine) without abnormal findings (principal); N92.0 Excessive and frequent menstruation with regular cycle; D64.9 Anemia, unspecified; G43.909 Migraine, unspecified, not intractable, without status migrainosus
CPT/HCPCS: 99385; 99459

== ENCOUNTER 2025-02-05 13:56 | Outpatient (REF) | payer OTHER, SELFPAY | END 2025-02-05 13:57 | disposition home or self-care (01) | LOC: HO.LAB 13:56 | PROVIDERS: Visit Provider Advanced Practice Midwife | DX: Z13.89 Encounter for screening for other disorder (principal) ==

== ENCOUNTER 2025-05-04 11:11 | Outpatient (REF) | payer OTHER, SELFPAY ==
--- OUTSIDE RECORDS SUMMARY | 2025-05-04 12:18 | XMS_ITS ---
Author Name [facility] Organization Unknown Encounters Encounter Type Encounter Reason Primary Diagnosis Location Date Ambulatory [facility]. ([facility]) 09/30/2024
[2025-05-04 13:58] LABS: MANUAL DIFF FLAG NO
[2025-05-04 14:09] LABS: Hematocrit 33.6 % (37.0-47.0); Hemoglobin 10.4 g/dl (12.0-16.0); Imm Gran Abs Auto 0.02 X10*3/uL (0.00-0.03); Imm Gran Pct Auto 0.3 % (0.0-0.4); Lymphocytes Absolute Auto 2.0 X10*3/uL (1.2-4.9); Mean Corpuscular HGB Conc 31.0 g/dl (31.0-35.0); Mean Corpuscular Hemoglobin 23.2 pg (27.0-33.0); Mean Corpuscular Volume 74.8 fL (80.0-98.0); NRBC Abs Auto 0.000 X10*3/uL (0.0-0.012); NRBC Pct Auto 0.0 /100WBC (0.0-0.2); Platelet Count 370 X10*3/uL (160-400); Red Blood Count 4.49 X10*6/uL (4.20-5.50); White Blood Count 6.4 X10*3/uL (4.8-10.8)
[2025-05-04 14:47] LABS: Iron 51 mcg/dL (30-160); Percent Iron Saturation 14 % (15-50); Total Iron Binding Capacity 374 mcg/dL (228-428); Unsaturated Iron Binding 323 ug/dL
== END 2025-05-04 11:12 | disposition home or self-care (01) ==
LOC: HO.HMGCLDS 11:11
DX: Z00.00 Encounter for general adult medical examination without abnormal findings (principal); D64.9 Anemia, unspecified
CPT/HCPCS: 36415; 83540; 85025

== ENCOUNTER 2025-05-06 15:54 | Outpatient (AMB) | payer OTHER, SELFPAY ==
--- NOTE | 2025-05-06 15:55 | MHC.PC.OV ---
Intake Visit Reasons: f/u anemia can be tele Bar Welder Required: No Allergies No Known Allergies Allergy (Verified 02/05/25 13:01) Medication List - Last Reconciled 05/06/25 by Denisse Thorne PA-C amitriptyline 100 mg PO BEDTIME azelastine 1 spray intranasal BID cholecalciferol (vitamin D3) 25 mcg PO DAILY fexofenadine 180 mg PO DAILY fremanezumab-vfrm (Ajovy) 225 mg subcut Q4W metronidazole 500 mg PO Q12H miconazole nitrate 2% (Miconazole-7) 1 appful vaginal BEDTIME 7 days misoprostol [address] one tab 6 hrs prior to iud insertion, if no or minimal cramping, repeat dose 2 hours before planned insertion, on day 2 of menses. mupirocin 2% 1 appl topical BID sumatriptan succinate mg PO Tobacco use date assessed: 05/06/25 Dental Screening Dental Screen Date: 11/05/24 Did you have a dental visit in the last 12 months?: Yes Did you have a dental problem in the last 6 months where you did not have access to dental care?: No Was dental information given to patient?: Patient has dentist HPI f/u anemia can be tele HPI Details 39-year-old female with past medical history of iron-deficiency anemia, pseudotumor cerebri, depression, migraines last seen 01/2025 presenting via telehealth for follow up on anemia. Patient tells us today she has developed a polyp in her nose and is scheduled to see ENT for this concern. [facility] Medical History Pseudotumor cerebri History of lumbar puncture Surgical History No pertinent past surgical history Family History Father Substance use disorder Social History Housing: House Alcohol intake: current Alcohol intake frequency: holidays/special occasions only Patient Tobacco Use Status: Never used Tobacco e-Cigarette/Vaping Use: Never Used Second Hand Smoke Exposure: No service: No Current occupational status: unemployed Cognitive needs: No Hearing needs: No Vision needs: Yes (Contacts) Female Reproductive History Menstrual Age of Menarche: 12 Questionnaire Thrive Questionnaire Date Thrive assessed: 11/03/24 ALEXX-7 AMB Questionnaire ALEXX-7 Date ALEXX - 7 assessed: 11/05/24 Source: Developed by Drs. Catracho Singleton, Aurelia Uriostegui, Dominick Hernandez and colleagues, with an educational gely from [employer]. Review of Systems Const Reports fatigue, Denies fever(s), Denies increased appetite, Reports lethargy and Denies snoring Eyes Details: Stye has resolved ENT Reports as per HPI Card Denies chest pain, Denies syncope and Denies dyspnea Resp Denies dyspnea and Denies snoring GI Reports no additional complaints Musc Reports no additional complaints Neuro Denies syncope Endo Reports fatigue Physical exam (Primary Care) Vital Signs: Vital signs and physical exam not performed today due to nature of telehealth visit Tobacco/Smoking Status: Tobacco use Status Tobacco use date assessed 05/06/25 05/06/25 15:57 Patient Tobacco Use Status Never used Tobacco 05/06/25 15:55 e-Cigarette/Vaping Use Never Used 05/06/25 15:55 Thrive Assessment: Date of Thrive Assessment Date Thrive assessed 11/03/24 05/06/25 15:55 Telehealth Telehealth Telehealth Platform: Telephone Location of patient: address on file Patient Identification confirmed using: Name, : Yes Telehealth method: voice only Coding Level of Care Code Tele Est Pt Level 3 (08632) Diagnoses Iron deficiency anemia D50.9 Nasal polyp J33.9 Assessment & Plan Assessment & Plan (1) Iron deficiency anemia: Code(s): D50.9 - Iron deficiency anemia, unspecified Category: Medical Plan: Patient tells us today she could not tolerate the oral iron as it was causing stomach pain and cramping as well as constipation. She continues to have fatigue and drowsiness which she believes to be related to her anemia. Her hemoglobin has mildly improved from 9.4-10.4 however her iron remains low normal and % saturation as low as well. Referral was placed to Hematology for possible IV iron infusions. (2) Nasal polyp: Code(s): J33.9 - Nasal polyp, unspecified Category: Medical Plan: Patient has a appointment to see ear nose and throat for this concern Plan This note was constructed using voice recognition software. While every effort has been made to ensure accuracy and veterans adviser, still areas may have been included sometimes these areas may affect the content or meeting of the given symptoms. Total time spent caring for the patient today was 20 minutes. This includes time spent before the visit reviewing the chart, time spent during the visit, and time spent after the visit and documentation Orders: Referrals Hematology & Oncology Referral D50.9 - Iron deficiency anemia, unspecified
== END 2025-05-06 16:36 | disposition home or self-care (01) ==
LOC: HO.HMCH 15:54
DX: D50.9 Iron deficiency anemia, unspecified (principal); J33.9 Nasal polyp, unspecified

== ENCOUNTER → 2025-06-03 14:51 | Outpatient (BNV) | payer OTHER, SELFPAY | PROVIDERS: Visit Provider Internal Medicine | DX: D50.9 Iron deficiency anemia, unspecified (principal) | CPT/HCPCS: 99204 ==

== ENCOUNTER 2025-06-10 12:00 | Outpatient (AMB) | payer OTHER, SELFPAY ==
--- NOTE | 2025-06-10 12:13 | MHC.OFFVIS ---
Intake Visit Reasons: 4 month Allergies No Known Allergies Allergy (Verified 02/05/25 13:01) Medication List - Last Reconciled 06/10/25 by Dolores Bryant MD amitriptyline 100 mg PO BEDTIME czjgcmy-helpmjdbbcwjg-lchqbnua 250-250-65 mg (Excedrin Extra Strength) 2 tabs PO Q6H PRN cholecalciferol (vitamin D3) 25 mcg PO DAILY fexofenadine 180 mg PO DAILY fremanezumab-vfrm (Ajovy) 225 mg subcut Q4W mupirocin 2% 1 appl topical BID sumatriptan succinate 100 mg PO DAILY HPI Comments Details: This is a 39-year-old right-handed woman who has been under the care of [facility] neurology and was last seen in my office 15 years ago.? She has been getting migraine headaches about once a week that can last from 2 hours to a whole day with nausea intense photophobia and a pounding headache that could be unilateral temporal or generalized.? They may be triggered by stress.? She is found that Ajovy injections monthly seem to help and reduce the vomiting but the frequency remains once a week.? Sumatriptan aborts the migraine if taken early. 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 Her anxiety is less.? Barometric pressure triggers migraine. She gets a daily tension type headache that comes on either upon awakening or by mid day or after known with a bifrontal pressure but she can function with that.?Has reduced Excedrin intake to 8-10 a week. In October 2024, she had a bad sinus infection from this staph infection and needed 3 courses of antibiotics which were completed in November.? She still feels congested has a runny nose and some thick phlegm and uses Nicole every day.? She has been referred to ENT and allergy but has not had an appointment yet.? In the past she took some Botox injections, which also helped the migraine, but her current insurance does not cover that..?Stress may be a trigger. She has a history of chronic daily headaches are less, drug overuse headaches as well as migraines but the background of anxiety depression and attention deficit disorder and sleep problems. At that point her use of Excedrin is 10 pills / week. she first started having migraines when she was 17 years old. [facility] Medical History (Updated 06/10/25 @ 12:25 by Dolores Bryant MD) Depression with anxiety ADD (attention deficit disorder) Tension headache Anxiety state, unspecified Migraines Pseudotumor cerebri History of lumbar puncture Surgical History (Updated 06/03/25 @ 15:12 by Hamida Dillon MD) No pertinent past surgical history Family History Father Substance use disorder Social History (Updated 06/03/25 @ 15:07 by Abisai Trejo) Household Members: Significant Other Housing: House Alcohol intake: current Alcohol intake frequency: holidays/special occasions only Patient Tobacco Use Status: Never used Tobacco e-Cigarette/Vaping Use: Never Used Second Hand Smoke Exposure: No Substance Use Type: Marijuana service: No Current occupational status: unemployed Cognitive needs: No Hearing needs: No Vision needs: Yes (Contacts) Female Reproductive History Menstrual Age of Menarche: 12 Review of Systems Const Details: General/Constitutional:? Change in appetitedenies.? Fatiguedenies.? Feverdenies.? Weight gaindenies.? Weight lossdenies. ???Sleep:? Difficulty getting to sleepdenies.? Difficulty maintaining sleepdenies?.? Daytime sleepinessdenies. ???Respiratory:? Shortness of breathdenies.? Chest paindenies. ???Cardiovascular:? Chest pain at restdenies.? Chest pain with exertiondenies.? Dizzinessdenies.? Fluid accumulation in the legsdenies.? Irregular heartbeatdenies.? Palpitationsdenies. ???Gastrointestinal:? Constipationdenies.? Diarrheadenies.? Difficulty swallowingdenies.? Heartburndenies.? Nauseadenies. ???Genitourinary:? Frequent urinationdenies.? Urgencydenies.? Incontinencedenies. ???Musculoskeletal:? Neck paindenies.? Back paindenies.? Joint stiffnessdenies.? Sciaticadenies. ???Neurologic:? Difficulty swallowingdenies.? Balance difficultydenies.? Coordinationnormal.? Difficulty speakingdenies.? Dizzinessdenies.? Faintingdenies.? Gait abnormalitydenies.? Headacheadmits.? Loss of strengthdenies.? Loss of use of extremitydenies.? Low back paindenies.? Memory lossdenies.? Seizuresdenies.? Ticsdenies.? Tingling/Numbnessdenies.? Transient loss of visiondenies.? Tremordenies. ???Psychiatric:? Anxietydenies.? Auditory/visual hallucinationsdenies.? Delusionsdenies.? Depressed mooddenies.? Stressorsadmits.? Suicidal thoughtsdenies. Physical Exam Neuro Other: Neurological: Abnormal neurological findings:??Blurred nasal disc margins on funduscopy.?Mental Status:??alert and oriented X 3,?Normal attention, orientation, memory and affect.?Cranial Nerves:??Pupils are equal, round and reactive to light. Fundoscopy shows normal disc bilaterally. External occular muscles are intact. Visual shaffer are full, no ptosis. Face is symmetrical, no facial weakness or droop. Facial sensations are normal. Tongue protrudes in midline. Palate elevates symmetrically. Shoulder shrugging is normal..?Motor Examination:??Normal muscle tone, bulk and strength,?No atrophy or fasciculations,?No drift of the extended upper extremities,?Deep tendon reflexes are 2+?,?Plantars are flexor?.?Straight Leg Raising:??90 degrees.?Sensory Exam:??Normal light touch, temperature, pinprick, vibration and joint-position sensations?,?Rhomberg sign is absent.?Coordination:??no ataxia,?no titubation,?llnmjz-rg-ueow, zqej-cyvy-fsgi test and rapid alternating movements were normal.?Gait Exam:??Within normal limits.?Cerebellar Signs:??Qtjryq-px-sdkq and ahyx-tw-ohry is normal,?no dysdiadochokinesia?.?Extrapyramidal System:??No tremor, rigidity with normal facial expressions,?No bradykinesia, no bradyphrenia. Normal arm swing and posture. No propulsion or retropulsion.?Speech:??Normal,?no dysphasia or dysarthria..? General Examination: GENERAL APPEARANCE:??normal,?in no acute distress.?HEART:??S1, S2 normal,?no murmurs.?LUNGS:??clear anteriorly and posteriorly.?MUSCULOSKELETAL:??normal.?EXTREMITIES:??no edema.?PSYCH:??alert, oriented,?cognitive function intact,?cooperative with exam.? Mini Mental Status Exam: Level of Consciousness:??Alert.?Orientation:??Knows correct year, month, date, day and season,?Knows correct city, county and state. Knows correct location and floor.?Registration:??Able to register 3 objects.?Attention:??Serial 7's performed accurately.?Recall:??Able to recall 3 out of 3 objects.?Language:??Normal spontaneous speech, fluency, repetition,naming, comprehension, reading and writing.?Total Score:??.? Assessment & Plan Assessment & Plan (1) Migraines: Comment: Patient states sometimes with aura is on medication Code(s): G43.909 - Migraine, unspecified, not intractable, without status migrainosus Category: Medical (2) Pseudotumor cerebri: Comment: Dr. Gonzalez yearly Code(s): G93.2 - Benign intracranial hypertension Category: Medical (3) Tension headache: Code(s): G44.209 - Tension-type headache, unspecified, not intractable Category: Medical (4) Medication overuse headache: Comment: Try and reduce Excedrin intake , preferably no more than 4/ week Code(s): G44.40 - Drug-induced headache, not elsewhere classified, not intractable Category: Medical Plan Continue current meds. Reduce Excedrin use. Getting Iron infusion for severe anemia today. Will see if that impacts the headaches. Coding Level of Care Code Est Pt Level 4 (14217) Diagnoses Migraines G43.909 Pseudotumor cerebri G93.2 Tension headache G44.209 Medication overuse headache G44.40
== END 2025-06-10 12:27 | disposition home or self-care (01) ==
LOC: HO.HSM 12:01
PROVIDERS: Visit Provider Psychiatry & Neurology Neurology
DX: G43.909 Migraine, unspecified, not intractable, without status migrainosus (principal); G93.2 Benign intracranial hypertension; G44.209 Tension-type headache, unspecified, not intractable; G44.40 Drug-induced headache, not elsewhere classified, not intractable
CPT/HCPCS: 99214

== ENCOUNTER → 2025-06-10 12:00 | Outpatient (BNVA) | payer OTHER, SELFPAY | PROVIDERS: Visit Provider Psychiatry & Neurology Neurology | DX: G43.909 Migraine, unspecified, not intractable, without status migrainosus (principal); G44.209 Tension-type headache, unspecified, not intractable; G44.40 Drug-induced headache, not elsewhere classified, not intractable; G93.2 Benign intracranial hypertension | CPT/HCPCS: 99212 ==

== ENCOUNTER 2025-07-14 10:00 | Outpatient (RCR) | payer OTHER, SELFPAY ==
[2025-06-10 12:51] VITALS: BP 130/86; PULSE 96; RESP 16; TEMP 36.8; O2SAT 100
[2025-06-17 13:13] VITALS: BP 119/81; PULSE 90; RESP 16; TEMP 36.6; O2SAT 100
[2025-06-24 13:03] VITALS: BP 137/93; PULSE 95; RESP 16; TEMP 36.6; O2SAT 100
[2025-07-01 12:33] VITALS: BP 128/73; PULSE 98; RESP 16; TEMP 36.9; O2SAT 100
[2025-07-08 12:59] VITALS: BP 128/76; PULSE 97; RESP 16; TEMP 36.8; O2SAT 100
[2025-07-14 10:10] VITALS: BP 143/90; PULSE 82; RESP 16; TEMP 36.4; O2SAT 99
== END 2025-07-14 11:36 | disposition home or self-care (01) ==
LOC: HO.INF 10:00
PROVIDERS: Visit Provider Internal Medicine
DX: D64.9 Anemia, unspecified (principal)
CPT/HCPCS: 96365; 96374; J1756